=== PATIENT | female | born 1990 | race Caucasian/White ===

== ENCOUNTER 2020-07-25 00:45 | Inpatient (IN) | payer OTHER, SELFPAY ==
[2020-07-25] VITALS (92 sets, daily range): BP systolic 99–147; BP diastolic 53–105; PULSE 65–117; RESP 18; TEMP 36.2–37.1; O2SAT 98–100; BMI 25.0
--- NOTE | 2020-07-25 06:45 | LDADM ---
This patient, Karen Martin, was admitted to Labor/Delivery/Recovery 102 on 07/25/20 at 00:45. Plans for labor, pain management and were discussed with patient. Patient/family oriented to hospital policies and general routines including ID bracelet, bed and alarms, visiting hours, pain management, procedures, bathroom and other care routines, personal items, smoking policy, room service/diet and guest tray routines, security routines, and visiting hours. Patient/Family are encouraged to report perceived risks to care and to ask questions if they do not understand what they are told or what they should do. See OBIX for further documentation.
[2020-07-25] MEDS: LACTATED RINGERS 1,000 ML 125 ML IV CONT ×3 (07:39→11:14)
[2020-07-25] MEDS: OXYTOCIN 30 UNITS/NS 500 ML 30 UNITS/500 ML BAG 6 UNITS IV CONT (07:40)
--- NOTE | 2020-07-25 07:48 | P.PNAN_ITS ---
Anes - Eval Pre Procedure Procedure: labor epidural Date/Time: 07/25/20 07:48 Surgeon: allen Preop Diagnosis: pain during labor Pre Op Diagnosis: Induction of Labor Patient Data Age: 30 Gender: F Height: 1.68 m Weight: 70.4 kg Last Vital Signs Pulse 93 07/25/20 07:31 BP 123/86 07/25/20 07:31 Allergies Allergy/AdvReac Type Severity Reaction Status Date / Time No Known Allergies Allergy Verified 06/27/20 15:35 Home Medications Medication Instructions Recorded Confirmed Type PNV cmb#95-ferrous fumarate-FA 1 tablet PO DAILY 06/27/20 06/27/20 History [] Laboratory Tests 07/25/20 07/25/20 07:34 07:34 WBC Pending RBC Pending Hgb Pending Hct Pending MCV Pending MCH Pending MCHC Pending RDW Pending Plt Count Pending MPV Pending Immature Gran % (Auto) Pending Neut % (Auto) Pending Lymph % (Auto) Pending [place] % (Auto) Pending Eos % (Auto) Pending Baso % (Auto) Pending Lymph # (Auto) Pending [place] # (Auto) Pending Eos # (Auto) Pending Baso # (Auto) Pending Abs Immat Gran (auto) Pending Absolute Neuts (auto) Pending Absolute Nucleated RBC Pending Nucleated RBC % Pending RPR Pending Patient hx anesthesia problems: none Family hx anesthesia problems: none PMFSH Family History Family History (Updated 06/27/20 @ 15:38 by Ynes Christianson RN) Grandparent Diabetes mellitus Hx of CABG Heart disease, congenital Father High cholesterol Hypertension Social History Social History Smoking status: Never smoker Substance use: never Spiritual care concerns: No Exam Day of Procedure 07/25/20 07:48
--- NOTE | 2020-07-25 07:49 | P.HP_ITS ---
Obstetrics - Admit Note Admission Note: record reviewed. No pertinent additions to the history and/or any subsequent changes in the physical findings that are not consistent with the expected course of the were found.39.6 weeks gestation, EIL Additions to the history and/or subsequent changes in the physical findings fo llow. None.
[2020-07-25 07:50] LABS: Basophils Percent Auto 0.3 % (0.2-1.2); Eosinophils Absolute Auto 0.1 K/mm3 (0-0.3); Eosinophils Percent Auto 1.4 % (0-4.4); Hematocrit 35.4 % (37.0-47.0); Hemoglobin 12.1 g/dL (12.0-15.0); Immature Granulocyte Absolute 0.15 K/mm3 (0.00-0.031); Immature Granulocyte Percent A 1.5 % (0-0.5); Lymphocytes Absolute Auto 1.57 K/mm3 (0.9-3.2); Mean Corpuscular HGB Conc 34.2 g/dl (32-36); Mean Corpuscular Hemoglobin 31.7 pg (26-34); Mean Corpuscular Volume 92.7 fl (80-100); Mean Platelet Volume 12.1 fl (7.4-10.4); Monocytes Absolute Auto 0.7 K/mm3 (0.1-0.6); Monocytes Percent Auto 6.6 % (2.6-8.5); Neutrophils Absolute Auto 7.3 K/mm3 (1.3-6.7); Neutrophils Percent Auto 74.2 % (45.5-73.1); Platelet Count Result 135 k/mm3 (150-375); Red Blood Count 3.82 M/mm3 (4.2-5.4); Red Cell Distribution Width 14.6 % (11.5-14.5); White Blood Count 9.8 K/mm3 (4.5-10.0)
--- NOTE | 2020-07-25 14:09 | PM.OBPRVD ---
OB - Delivery Note Procedure Delivery date: 07/25/20 Procedure: vag delivery Intrapartal events: None Induction method: AROM and per pitocin protocol Delivery monitor: external FHT and external uterine Laceration description: None Specimen: No Estimated blood loss (mL): 225 Anesthesia type: Epidural Baby Date of : 07/25/20 Time of : 14:00 Weeks of gestation at delivery: 39 gender: Female presentation: vertex position: Left Occiput Anterior cord vessel description: 3 Vessels and Clamped/Cut score one minute: 9 score five minutes: 9
[2020-07-25] MEDS: OXYTOCIN 30 UNITS/NS 500 ML 30 UNITS/500 ML BAG 125 UNITS IV CONT (14:37)
[2020-07-25] MEDS: WITCH HAZEL 40 PADS 1 PAD TOPICAL (15:43)
[2020-07-25] MEDS: BENZOCAINE 20% AER SPR (*SP) 56 GM CAN 1 SPRAY TOPICAL (15:43)
--- NOTE | 2020-07-25 18:03 | PC.NURSE ---
Addendum entered by Ivana Olson RN 07/25/20 18:03: PT. admitted at 1715 to floor. Original Note: Patient transferred to post room #282 per wheelchair. Support person present. Oriented to unit, room, information board, rooming in, admission packet and security measures. Patient verbalizes understanding.
[2020-07-25] MEDS: IBUPROFEN 600 MG TABLET PO (18:54)
[2020-07-26] MEDS: IBUPROFEN 600 MG TABLET PO ×2 (05:00→16:33)
[2020-07-26 05:10] LABS: Hematocrit 30.3 % (37.0-47.0); Hemoglobin 10.5 g/dL (12.0-15.0)
--- NOTE | 2020-07-26 07:16 | PM.OBPNVD ---
OB - PN: Subj Subjective Date/time seen: 07/26/20 07:16 Patient comments: no complaints, pain well controlled and other (Lochia similar to menses) [place] baby status: doing well OB - PN: Obj Data Labs CBC & Chem 7: 07/26/20 04:58 Labs: Laboratory Results - last 24 hr 07/25/20 07/25/20 07/26/20 07:34 07:34 04:58 WBC 9.8 RBC 3.82 L Hgb 12.1 10.5 L Hct 35.4 L 30.3 L MCV 92.7 MCH 31.7 MCHC 34.2 RDW 14.6 H Plt Count 135 L MPV 12.1 H Immature Gran % (Auto) 1.5 H Neut % (Auto) 74.2 H Lymph % (Auto) 16.0 L [place] % (Auto) 6.6 Eos % (Auto) 1.4 Baso % (Auto) 0.3 Lymph # (Auto) 1.57 [place] # (Auto) 0.7 H Eos # (Auto) 0.1 Baso # (Auto) 0.0 Abs Immat Gran (auto) 0.15 H Absolute Neuts (auto) 7.3 H Absolute Nucleated RBC 0.0 Nucleated RBC % 0.0 Blood Type O Positive Antibody Screen Negative OB - PN A/P Plan day: 1 (s/p vaginal delivery, doing well) Plan: routine care and discharge home (Follow up in 4 weeks) Time Spent With Patient Time: Total time spent is greater than 50% in coordination of care (as documented) at patient's floor/unit and/or counseling patient: Time with patient: less than 15 minutes Exam Const: General: no acute distress GI: Inspection: other (Fundus firm and nontender at umbilicus) GI Palp: Yes Soft to palpation and No Tenderness to palpation present (GI) Extrem: General: no edema
[2020-07-26 07:56] LABS: Rapid Plasma Reagin Non-Reactive (NonReactive)
--- NOTE | 2020-07-26 08:00 | PC.NURSE ---
PT introductions made and plan of care discussed per post , pain management, breast feeding, daily care activities and pending discharge to home. PT verbalized understanding of such care.
[2020-07-26 08:25] VITALS: BP 117/82; PULSE 83; RESP 16; TEMP 36.9; O2SAT 100
[2020-07-26] MEDS: DOCUSATE SODIUM 100 MG CAPSULE PO ×2 (10:21→16:33)
[2020-07-26] MEDS: MULTIVIT/MIN/PREN/FOL AC/IRON TABLET 1 TAB PO (10:21)
[2020-07-26 10:23] VITALS: PULSE 83; RESP 16; O2SAT 100
[2020-07-26] MEDS: ACETAMINOPHEN 325 MG TABLET 650 MG PO ×2 (10:23→16:34)
--- NOTE | 2020-07-26 11:08 | WPDANLDPN2 ---
Anes-Prog Note L&D Date/Time: 07/26/20 11:08 Comfortable throughout: labor and delivery Neuraxial method: epidural Epidural/Spinal procedure site: clean & non-tender Neuro status: Neuro function grossly intact. Cardiovascular status: normal Respiratory status: normal Airway patency: baseline Mental status: baseline Post-Op hydration status: normal Vital Signs: Last Vital Signs Temp 36.9 C 07/26/20 08:25 Pulse 83 07/26/20 08:25 Resp 16 07/26/20 08:25 BP 117/82 07/26/20 08:25 Pulse Ox 100 07/26/20 08:25 Pain score (VAS): 11/12 I/O: Intake & Output 07/25/20 07/26/20 07/26/20 23:59 07:59 15:59 Intake Total 1500 Output Total 168 Balance 1332 Post-procedural complaints: none Patient feedback: Patient satisfied with anesthetic care.
--- NOTE | 2020-07-26 13:15 | PC.NURSE ---
Consulted with patient, mother reports infant is eagerly waking and latching for most feedings without difficulties or discomfort, mother struggles with some feedings. Assured mother this is normal while both are learning. Reviewed feeding cues, frequencies, duration of feedings, feeding elimination flow sheet, and signs of adequate intake. Demonstrated stimulation techniques to wake for feeding. Assisted with to breast. Reviewed positioning/alignment in cross cradle, holding breast in U hold and guided asymmetrical latch on. Discussed rational for each. Infant was able to latch correctly. Infant nursed eagerly, with steady draws and frequent swallowing noted. Reviewed signs of a correct latch, effective nursing and suck swallow ratio. Infant was able to maintain latch without discomfort to mother. Nipple care reviewed. Advised to stimulate to keep awake and nursing effectively for increased intake and to assist with maintaining deep latch. Demonstrated how to adjust latch more deeply while feeding. Instructed mother to call out for RN assistance if she is unable to latch for feeding or she has discomfort with nursing. Instructed feeding should be initiated three hours from start of last feeding or if feeding cues are noted before. Mother voiced understanding of information shared.
[2020-07-26] MEDS: TETANUS,DIPHTHERIA,AC PERTUSSIS ADULT (0.5 ML) BOOSTRIX IM (16:48)
[2020-07-26] MEDS: LANOLIN (LANSINOH) 7.5 GM CREAM 2 APPLIC (16:50)
[2020-07-26 20:00] VITALS: BP 105/70; PULSE 60; RESP 16; TEMP 36.6; O2SAT 100
[2020-07-27] MEDS: ACETAMINOPHEN 325 MG TABLET 650 MG PO ×2 (03:11→10:09)
[2020-07-27] MEDS: IBUPROFEN 600 MG TABLET PO ×2 (03:11→10:10)
--- NOTE | 2020-07-27 08:07 | P.PNOB_ITS ---
OB - PN: Subj Subjective Date/time seen: 07/27/20 08:07 Patient comments: no complaints and pain well controlled baby status: doing well and nursing well OB - PN: Obj Data Labs CBC & Chem 7: 07/26/20 04:58 OB - PN A/P Plan day: 2 Plan: routine care Comments: RTC in 4 weeks. Time Spent With Patient Time: Total time spent is greater than 50% in coordination of care (as documented) at patient's floor/unit and/or counseling patient: Review of Systems 2 Review of Systems: All systems reviewed & are unremarkable except as noted in HPI and below Exam Narrative: Exam Narrative: Fundus firm. Flow controlled. No edema. Const: General: comfortable and no acute distress Resp: Effort & Inspection: normal respiratory effort Psych: Appearance: grossly normal Affect: normal affect Attitude: coope rative Judgement: Good judgement present (Psych)
[2020-07-27 08:10] VITALS: BP 128/67; PULSE 106; RESP 18; TEMP 37.2; O2SAT 99
--- NOTE | 2020-07-27 08:58 | WPDANLDPN2 ---
Anes-Prog Note L&D Date/Time: 07/27/20 08:58 Comfortable throughout: labor and delivery Neuraxial method: epidural Epidural/Spinal procedure site: clean & non-tender Neuro status: Neuro function grossly intact. Cardiovascular status: normal Respiratory status: normal Airway patency: baseline Mental status: baseline Post-Op hydration status: normal Vital Signs: Last Vital Signs Temp 36.6 C 07/26/20 20:00 Pulse 60 07/26/20 20:00 Resp 16 07/26/20 20:00 BP 105/70 07/26/20 20:00 Pulse Ox 100 07/26/20 20:00 Pain score (VAS): 0 Post-procedural complaints: none Patient feedback: Patient satisfied with anesthetic care.
--- NOTE | 2020-07-27 09:00 | PC.NURSE ---
Patient viewed the discharge video Mother & Baby Care, The First Two Weeks . Patient was given the opportunity and encouraged to ask questions. Patient verbalized understanding of information shared and has been given the mother/baby guide for home reference.
--- NOTE | 2020-07-27 09:50 | PC.NURSE ---
Mother verbalizes she is able to independently latch with appropriate positioning/alignment. She denies any nipple discomfort, is feeding as required and waking to feed if needed. Infant has had at least 8 effective feedings in the past 24 hours, and is currently meeting outcomes for weight, output, jaundice and feeding frequencies. Mother states she feels confident to continue effective at home. Reviewed transition to breast milk, signs of adequate intake, and engorgement/relief. Instructed to call ICP if intake/output less than required. Reviewed regular medications mother is taking. Information provided per [place]. Reviewed community resources on the [facility] website and in the Mom/Baby guide. Information on outpatient services provided. Mother has no further questions at this time.
[2020-07-27] MEDS: MULTIVIT/MIN/PREN/FOL AC/IRON TABLET 1 TAB PO (10:08)
[2020-07-27 10:10] VITALS: PULSE 106; RESP 18; O2SAT 99
[2020-07-27] MEDS: DOCUSATE SODIUM 100 MG CAPSULE PO (10:10)
--- NOTE | 2020-07-27 10:45 | PC.NURSE ---
PT received discharge instructions per protocol and verbalized understanding of such care.
--- NOTE | 2020-07-27 11:20 | PC.NURSE ---
PT discharged to home ambulatory accompanied by both spouse and infant to waiting car. follow up appts confirmed
--- NOTE | 2020-07-28 07:41 | PM.OBDSVD ---
DS: Admitting Diagnosis Admitting Diagnosis Admitting Diagnosis: Induction of Labor, vag delivery, stable OB - DS: Summary OB Procedures : None OB Procedures Intrapartum: Spontaneous Vag Delivery OB Procedures: : None Time Spent with Patient Time attestation: Total time spent providing and/or coordinating discharge services: Discharge Plan Discharge Attending physician on discharge: Cyrus Antonio Discharging Clinician: Velia Pineda Patient Disposition: Home, Self-Care Activity: may shower and pelvic rest Diet: regular Discharge Instructions: Education: Mom and Baby Guide Given to: Mother Follow-Up: Call your delivering provider's office for an appointment to be seen in: 4 Weeks Mom and baby should come to the [facility] for the follow-up appointment. Appointment Date/Time: July 28, 2020 at 11:00 am What to expect at your follow-up visit: Blood Pressure Check Call [phone] if you are unable to keep your appointment time. BREAST CARE: * Wear a snug supportive bra. * For engorgement discomfort: Breast Feeding: * Apply warm moist washcloths * Express milk as needed to relieve engorgement * Wear loose clothing Bottle Feeding: * May apply ice packs * For sore nipples: * Identify correct latch-on * Apply warm moist washcloths before and after nursing * Air dry nipples after nursing * May apply Lansinoh cream to nipples PERINEAL CARE: * Until bleeding stops, use your tyson bottle after urinating * Change your pad frequently throughout the day * You may take sitz baths several times a day (fill your bathtub with warm water and soak for 20 minutes.) Do NOT bathe in the water * No tub baths until seen by your physician - You may shower ACTIVITY: * Rest as much as possible. * Do not exercise or lift anything heavier than your baby (such as laundry or other children.) * Avoid stairs or driving as much as possible. * Do not put anything into the vagina. No douching, tampons, or sexual activity until seen by physician. NOTIFY PHYSICIAN IF YOU HAVE ANY QUESTIONS OR IF ANY OF THE FOLLOWING SYMPTOMS OCCUR: * If your perineum becomes red, swollen, or more painful than what you have experienced in the hospital. * If your vaginal bleeding becomes foul smelling. * If your vaginal bleeding becomes more heavy than a period or if your bleeding changes from pink to bright red. However, you may pass an occasional walnut-sized clot once or twice for the first week . * If you experience a sharp, shooting pain in you calves. * If you discover a hard, reddened area on your breast or if you experience flu-like symptoms. * If you have a fever of 100.4 or greater DIET: * Eat regular, well-balanced meals. * Drink plenty of fluids daily. If , drink to thirst.Mother verbalizes she is able to independently latch infant with appropriate positioning/alignment. She denies any nipple discomfort, is feeding as required and waking to feed if needed. has had [# of feedings] effective feedings in the past 24 hours, and is currently meeting outcomes for weight, output, jaundice and feeding frequencies. Mother states she feels confident to continue effective at home. Reviewed transition to breast milk, signs of adequate intake, and engorgement/relief. Instructed to call ICP if intake/output less than required. Reviewed regular medications mother is taking. Information provided per [place]. Reviewed community resources on the [facility] website and in the Mom/Baby guide. Information on outpatient services provided. Mother has no further questions at this time. Patient Instructions: Antibiotic Form Stand Alone Forms: General Discharge Information Follow-up/Referrals: Liza Contreras CNM [Certified Nurse [employer]] -
[2020-07-28 10:34] VITALS: BP 121/75; PULSE 82; RESP 16; TEMP 36.8; O2SAT 99
== END 2020-07-27 11:20 | disposition home or self-care (01) | DRG 807 ==
LOC: ANHLDR 07:00 → ANHOB2 17:18
PROVIDERS: Advanced Practice Midwife; Admitting Provider Obstetrics & Gynecology; Visit Provider Obstetrics & Gynecology
DX: O36.8330 Maternal care for abnormalities of the fetal heart rate or rhythm, third trimester, not applicable or unspecified (principal); Z37.0 Single live birth; Z3A.39 39 weeks gestation of pregnancy; Z23 Encounter for immunization
CPT/HCPCS: 36415; 85014; 85018; 85025; 86592; 86850; 86900; 86901; 90471; 90686; 90715; A9270; G0008; J2590; J2795; J7120

== ENCOUNTER 2022-06-12 14:58 | Outpatient (CLI) | payer OTHER, SELFPAY ==
--- NOTE | ~2022-06-12 | US_ITS ---
EXAMINATION:US venous doppler LE LT INDICATION:Leg edema TECHNIQUE: Multiple grayscale, color flow and Doppler images of the ] and left lower extremity deep v enous systems were obtained and reviewed. COMPARISON:No prior studies for comparison. FINDINGS: The common femoral, superficial femoral and popliteal veins demonstrate normal respiratory variation, augmentation and compressibility. Color flow is also seen within the posterior tibial, pe roneal, greater saphenous and profunda veins. IMPRESSION: 1: No lower extremity deep venous thrombosis. Reviewed, dictated and finalized at location A.
== END 2022-06-12 14:59 | disposition home or self-care (01) ==
PROVIDERS: Visit Provider Advanced Practice Midwife
DX: R60.0 Localized edema (principal)
CPT/HCPCS: 93971

== ENCOUNTER 2022-09-06 05:13 | Inpatient (IN) | payer OTHER, SELFPAY ==
[2022-09-06] VITALS (120 sets, daily range): BP systolic 67–138; BP diastolic 26–107; PULSE 60–98; RESP 16; TEMP 36.3–37; O2SAT 95–100; BMI 23.5
--- OUTSIDE RECORDS SUMMARY | 2022-09-06 05:19 | XMS_ITS ---
:1990 Author Care Team Providers Name Role Phone Liza Contreras Primary Care Provider Unavailable Allergies Code Code System Name Reaction Severity Status Onset NKDA ? Notes: NO KNOWN ALLERGIES (Active) Com ment: Location: [facility]; Medications Name Status Start Date Stop Date ? ? fluconazole 150 mg tablet Completed ? 2021 iron Completed ? 08/25/2020 levothyroxine 25 mcg tablet Completed ? 03/2022 TAKE 1 TABLET BY MOUTH EVERY DAY levothyroxine 50 mcg tablet Active ? Not available TAKE 1 TABLET BY MOUTH EVERY DAY metoclopramide 10 mg tablet Active ? Not available NuvaRing 0.12 mg-0.015 mg/24 hr vaginal Completed ? 05/04/2020 Vitamin Active ? Not available Slynd 4 mg (28) tablet Completed ? 2 TAKE 1 TABLET BY MOUTH EVERY DAY Tylenol Completed ? 05/04/2020 Tylenol 325 mg tablet Completed ? 01/05/2021 take 2 tablet by oral route every 6 hours as needed valacyclovir 500 mg tablet Active ? Not a vailable TAKE 1 TABLET BY MOUTH TWICE DAILY RUBBER COMPOUNDER MIXER-PNV-DHA 28 mg iron-1 mg-200 mg capsule Completed ? 01/05/2021 Take 1 capsule every day by oral route. Zofran 4 mg tablet Completed 01/05/2020 01/13/2020 take 1 tablet by oral route every 4 hours as needed for nausea and vomiting Zyrtec Completed ? 01/05/2021 Zyrtec 10 mg tablet Active ? Not availabl e take 1 tablet by oral route every day Problems Name Status Onset Date Source ? SNOMED CT Concept Unknown 12/09/2016 History Edu
--- OUTSIDE RECORDS SUMMARY | 2022-09-06 05:19 | XMS_ITS | Encounter Summary ---
:1990 Author Reason for Visit OB visit OB [id number] EDC 09/12/2022 LMP 12/03/2021 Assessment and Plan Assessment Note Patient is _37__weeks . Discuss ed plan. 1. Routine care Discussion Note: None recorded.Patient educational handouts: No information available. Plan of Care Reminders Provider Appointments None recorded. ? ? Lab None recorded. ? ? Referral None recorded. ? ? Procedures None recorded. ? ? Surgeries None recorded. ? ? Imaging None recorded. ? ? Medications Name Start Date ? ? levothyroxine 50 mcg tablet ? TAKE 1 TABLET BY MOUTH EVERY DAY metoclopramide 10 mg tablet ? Take 1 tablet 4 times a day by oral route. Vitamin ? valacyclovir 500 mg tablet ? TAKE 1 TABLET BY MOUTH TWICE DAILY Zyrtec 10 mg tablet ? take 1 tablet by oral route every day Medications Administered None recorded. Vitals Height Weight BMI Blood Pressure 5 ft 5.5 in 145 lbs 23.8 kg/m2 119/78 mm[Hg] Results Lab Results None recorded. Allergies Code Code System Name Reaction Severity Onset NKDA ? ? ? Notes: NO KNOWN ALLERGIES (Active) Com ment: Location: [facility]; Problems Name Status Onset Date Source ? 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 Procedures Date Name Performed by ? 11/03/2007 Extraction of [place] Tooth Information n ot available 08/14/2022 US, O
--- OUTSIDE RECORDS SUMMARY | 2022-09-06 05:19 | XMS_ITS | Encounter Summary ---
:1990 Author Reason for Visit OB visit Assessment and Plan Assessment Note Patient is ___weeks . Discussed plan. 1. Routine care 2. Candidiasis of vagina ? Diflucan 150 mg tablet Discussion Note: None recorded.Patient educational handouts: No [...] BMI Blood Pressure 5 ft 5.5 in 141 lbs 23.1 kg/m2 111/73 mm[Hg] Results Lab Results None recorded. Allergies Code Code System Name Reaction Severity Onset NKDA ? ? ? Notes: NO KNOWN ALLERGIES (Active) Com ment: Location: [facility]; Problems Name Status Onset Date Source ? 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 Procedures Date Name Performed by ? 11/03/2007 Extraction of [place] Tooth Information n ot avail
--- OUTSIDE RECORDS SUMMARY | 2022-09-06 05:19 | XMS_ITS | Encounter Summary ---
:1990 Author Reason for Visit OB visit OB [id number] EDC 09/12/2022 LMP 12/03/2021 Assessment and Plan Assessment Note Patient is _31__weeks . Discuss ed plan. 1. Routine care [...] BMI Blood Pressure 5 ft 5.5 in 143 lbs 23.4 kg/m2 117/70 mm[Hg] Results Lab Results None recorded. Allergies Code Code System Name Reaction Severity Onset NKDA ? ? ? Notes: NO KNOWN ALLERGIES (Active) Com ment: Location: [facility]; Problems Name Status Onset Date Source ? 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 Procedures Date Name Performed by ? 11/03/2007 Extraction of [place] Tooth Information n ot available Vaccine List None recorded.
--- OUTSIDE RECORDS SUMMARY | 2022-09-06 05:19 | XMS_ITS | Encounter Summary ---
:1990 Author Reason for Visit None recorded. Assessment and Plan 1. Uterine size for dates discrepancy ? US, obstetric, follow-up Discussion Note: None recorded.Patient educational handouts: No information available. Plan of Care Reminders Provider Appointments None recorded. ? ? Lab None recorded. ? ? Referral None recorded. ? ? Procedures None recorded. ? ? Surgeries None recorded. ? ? Imaging US, Obstetric, Follow-up 08/14/2022 Brianna white Medications Name Start Date ? ? levothyroxine [...] every day Medications Administered None recorded. Vitals None recorded. Results Lab Results None recorded. Allergies Code Code System Name Reaction Severity Onset NKDA ? ? ? Notes: NO KNOWN ALLERGIES (Active) Com ment: Location: [facility]; Problems Name Status Onset Date Source ? 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 Procedures Date Name Performed by ? 11/03/2007 Extraction of [place] Tooth Information n ot available 08/14/2022 US, Obstetric, Follow-up [place] [address] [place] [address] ([address])
--- OUTSIDE RECORDS SUMMARY | 2022-09-06 05:19 | XMS_ITS | Encounter Summary ---
:1990 Author Reason for Visit OB visit OB [id number] EDC 09/12/2022 LMP 12/03/2021 Assessment and Plan Assessment Note Patient is 33.5___weeks . Discu ssed plan. 1. Routine care 2. Herpes simplex ? Valtrex 500 mg tablet Discussion Note: None recorded.Patient educational [...] BMI Blood Pressure 5 ft 5.5 in 144 lbs 23.6 kg/m2 107/64 mm[Hg] Results Lab Results None recorded. Allergies Code Code System Name Reaction Severity Onset NKDA ? ? ? Notes: NO KNOWN ALLERGIES (Active) Com ment: Location: [facility]; Problems Name Status Onset Date Source ? 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 Procedures Date Name Performed by ?
--- OUTSIDE RECORDS SUMMARY | 2022-09-06 05:19 | XMS_ITS | Encounter Summary ---
:1990 Author Reason for Visit OB visit OB [id number] EDC 09/12/2022 LMP 12/03/2021 Assessment and Plan Assessment Note Patient is _35__weeks . Discuss ed plan. 1. Routine care [...] ft 5.5 in 145 lbs 23.8 kg/m2 120/77 mm[Hg] Results Lab Results None recorded. Allergies Code Code System Name Reaction Severity Onset NKDA ? ? ? Notes: NO KNOWN ALLERGIES (Active) Com ment: Location: [facility]; Problems Name Status Onset Date Source ? 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 Procedures Date Name Performed by ? 11/03/2007 Extraction of [place] Tooth Information n ot available 08/14/2022 US, O
--- OUTSIDE RECORDS SUMMARY | 2022-09-06 05:19 | XMS_ITS | Encounter Summary ---
:1990 Author Reason for Visit OB visit OB [id number] EDC 09/12/2022 LMP 12/03/2021 Assessment and Plan Assessment Note Patient is _36__weeks . Discuss ed plan. 1. Routine care [...] BMI Blood Pressure 5 ft 5.5 in 146.6 lbs 24 kg/m2 132/83 mm[Hg] Results Lab Results None recorded. Allergies Code Code System Name Reaction Severity Onset NKDA ? ? ? Notes: NO KNOWN ALLERGIES (Active) Com ment: Location: [facility]; Problems Name Status Onset Date Source ? 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 Procedures Date Name Performed by ? 11/03/2007 Extraction of [place] Tooth Information n ot available 08/14/2022 US, O
--- OUTSIDE RECORDS SUMMARY | 2022-09-06 05:19 | XMS_ITS | Encounter Summary ---
:1990 Author Reason for Visit OB visit OB [id number] EDC 09/12/2022 LMP 12/03/2021 Assessment and Plan Assessment Note Patient is _38__weeks . Discuss ed plan. 1. Routine care [...] BMI Blood Pressure 5 ft 5.5 in 147 lbs 24.1 kg/m2 124/70 mm[Hg] Results Lab Results None recorded. Allergies Code Code System Name Reaction Severity Onset NKDA ? ? ? Notes: NO KNOWN ALLERGIES (Active) Com ment: Location: [facility]; Problems Name Status Onset Date Source ? 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 Procedures Date Name Performed by ? 11/03/2007 Extraction of [place] Tooth Information n ot available 08/14/2022 US, O
--- OUTSIDE RECORDS SUMMARY | 2022-09-06 05:19 | XMS_ITS | Encounter Summary ---
:1990 Author Reason for Visit OB visit OB [id number] EDC 09/12/2022 LMP 12/03/2021 Assessment and Plan 1. Routine care Discussion Note: None recorded.Patient [...] BMI Blood Pressure 5 ft 5.5 in 142 lbs 23.3 kg/m2 116/69 mm[Hg] Results Lab Results None recorded. Allergies Code Code System Name Reaction Severity Onset NKDA ? ? ? Notes: NO KNOWN ALLERGIES (Active) Com ment: Location: [facility]; Problems Name Status Onset Date Source ? 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 Procedures Date Name Performed by ? 11/03/2007 Extraction of [place] Tooth Information n ot available 05/21/2022 US, Obstetric, Limited [place] [address]
--- OUTSIDE RECORDS SUMMARY | 2022-09-06 05:19 | XMS_ITS | Encounter Summary ---
:1990 Author Reason for Visit OB visit OB [id number] EDC 09/12/2022 LMP 12/03/2021 Assessment and Plan Assessment Note Patient is _26__weeks . Discuss ed plan. 1. Routine care [...] BMI Blood Pressure 5 ft 5.5 in 138 lbs 22.6 kg/m2 106/68 mm[Hg] Results Lab Results None recorded. Allergies Code Code System Name Reaction Severity Onset NKDA ? ? ? Notes: NO KNOWN ALLERGIES (Active) Com ment: Location: [facility]; Problems Name Status Onset Date Source ? 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 Procedures Date Name Performed by ? 11/03/2007 Extraction of [place] Tooth Information n ot available 05/21/2022 US, Ob
[2022-09-06 05:56] LABS: Basophils Percent Auto 0.4 % (0.2-1.2); Eosinophils Absolute Auto 0.1 K/mm3 (0-0.3); Eosinophils Percent Auto 1.4 % (0-4.4); Hematocrit 34.6 % (37.0-47.0); Hemoglobin 11.6 g/dL (12.0-15.0); Immature Granulocyte Absolute 0.07 K/mm3 (0.00-0.031); Immature Granulocyte Percent A 0.8 % (0-0.5); Lymphocytes Absolute Auto 1.69 K/mm3 (0.9-3.2); Lymphocytes Percent Auto 20.2 % (18.3-44.2); Mean Corpuscular HGB Conc 33.5 g/dl (32-36); Mean Corpuscular Hemoglobin 30.4 pg (26-34); Mean Corpuscular Volume 90.6 fl (80-100); Mean Platelet Volume 11.8 fl (7.4-10.4); Monocytes Absolute Auto 0.6 K/mm3 (0.1-0.6); Monocytes Percent Auto 7.3 % (2.6-8.5); Neutrophils Absolute Auto 5.9 K/mm3 (1.3-6.7); Neutrophils Percent Auto 69.9 % (45.5-73.1); Platelet Count Result 149 k/mm3 (150-375); Red Blood Count 3.82 M/mm3 (4.2-5.4); Red Cell Distribution Width 13.9 % (11.5-14.5); White Blood Count 8.4 K/mm3 (4.5-10.0)
--- NOTE | 2022-09-06 05:58 | LDADM ---
This patient, Karen Martin, was admitted to Labor/Delivery/Recovery 104 on 09/06/22 at 05:13. Plans for labor, pain management and were discussed with patient. Patient/family oriented to hospital policies and general routines including ID bracelet, bed and alarms, visiting hours, pain management, procedures, bathroom and other care routines, personal items, smoking policy, room service/diet and guest tray routines, security routines, and visiting hours. Patient/Family are encouraged to report perceived risks to care and to ask questions if they do not understand what they are told or what they should do. See OBIX for further documentation.
[2022-09-06] MEDS: OXYTOCIN 30 UNITS/NS 500 ML 30 UNITS/500 ML BAG IV CONT (07:37)
--- NOTE | 2022-09-06 07:42 | WPDOBADMIT ---
Obstetrics - Admit Note Admission Note: record reviewed. No pertinent additions to the history and/or any subsequent changes in the physical findings that are not consistent with the expected course of the were found. IOL, sve 1.5/50/-1, plan pitocin and arom after epidural, anticipate vaginal delivery Additions to the history and/or subsequent changes in the physical findings follow. None.
[2022-09-06] MEDS: LACTATED RINGERS 1,000 ML 125 ML IV CONT ×2 (08:00→10:30)
--- NOTE | 2022-09-06 10:15 | WPDANESEPP ---
Anes - Eval Pre Procedure Procedure: Labor Epidural Date/Time: 09/06/22 10:15 Surgeon: Paco Preop Diagnosis: Labor Pain Pre Op Diagnosis: IOL Patient Data Age: 32 Gender: F Height: 1.68 m Weight: 66 kg Last Vital Signs Pulse 79 09/06/22 10:10 BP 120/63 09/06/22 10:10 Pulse Ox 100 09/06/22 10:11 O2 Del Method Room Air 09/06/22 06:13 Allergies Allergy/AdvReac Type Severity Reaction Status Date / Time No Known Allergies Allergy Verified 08/16/22 15:48 Home Medications Medication Instructions Recorded Confirmed Type vit no.95-ferrous 1 tablet PO DAILY 06/27/20 09/06/22 History fumarate 28 mg-folic acid 800 mcg tablet () levothyroxine 50 mcg tablet 50 mcg PO DAILY 08/16/22 09/06/22 History valacyclovir 500 mg tablet 500 mg PO Q12H 08/16/22 09/06/22 History (Valtrex) Laboratory Tests 09/06/22 09/06/22 09/06/22 05:49 05:49 05:49 WBC 8.4 K/mm3 K/mm3 (4.5-10.0) RBC 3.82 M/mm3 L M/mm3 (4.2-5.4) Hgb 11.6 g/dL L g/dL (12.0-15.0) Hct 34.6 % L % (37.0-47.0) MCV 90.6 fl fl (80-100) MCH 30.4 pg pg (26-34) MCHC 33.5 g/dl g/dl (32-36) RDW 13.9 % % (11.5-14.5) Plt Count 149 k/mm3 L k/mm3 (150-375) MPV 11.8 fl H fl (7.4-10.4) Immature Gran % (Auto) 0.8 % H % (0-0.5) Neut % (Auto) 69.9 % % (45.5-73.1) Lymph % (Auto) 20.2 % % (18.3-44.2) Bowie % (Auto) 7.3 % % (2.6-8.5) Eos % (Auto) 1.4 % % (0-4.4) Baso % (Auto) 0.4 % % (0.2-1.2) Lymph # (Auto) 1.69 K/mm3 K/mm3 (0.9-3.2) Bowie # (Auto) 0.6 K/mm3 K/mm3 (0.1-0.6) Eos # (Auto) 0.1 K/mm3 K/mm3 (0-0.3) Baso # (Auto) 0.0 K/mm3 K/mm3 (0.0-0.1) Abs Immat Gran (auto) 0.07 K/mm3 H K/mm3 (0.00-0.031) Absolute Neuts (auto) 5.9 K/mm3 K/mm3 (1.3-6.7) Absolute Nucleated RBC 0.0 K/mm3 K/mm3 (0.0-0.012) Nucleated RBC % 0.0 % % (0.0-0.2) RPR Pending Blood Type O Positive Antibody Screen Negative Patient hx anesthesia problems: none Family hx anesthesia problems: none Results Review: All pre-operative results and documents have been reviewed as part of the pre-operative evaluation. [facility] Family History Family History Grandparent Diabetes mellitus Hx of CABG Heart disease, congenital Father High cholesterol Hypertension Social History Social History Smoking status: Never smoker Substance use: never Spiritual care concerns: No Exam Day of Procedure 09/06/22 10:15 Patient weight: normal Heart: regular rate and rhythm Lungs: clear to auscultation Airway: Mallampati scale class II Neurological: alert and oriented
--- NOTE | 2022-09-06 15:38 | PM.OBPRVD ---
OB - Delivery Note Procedure Delivery date: 09/06/22 Procedure: Induction method: Per Pitocin Protocol Delivery augmentation: Rupture of Membranes Delivery monitor: External FHT and External Uterine Route of delivery: Specimen: No Quantitative Blood Loss (ml): 225 Anesthesia type: Epidural Disposition: Floor Narrative: mom and baby stable and doing skin to skin [place] Baby Date of : 09/06/22 Time of : 15:26 Weeks of gestation at delivery: 39 gender: Male Weight (pounds): 7 Weight (ounces): 15 presentation: vertex position: Right Occiput Anterior Placenta delivery description: Spontaneous Cord Vessel Description: 3 Vessels, Clamped/Cut and Delayed Cord Clamping score one minute: 9 score five minutes: 9
[2022-09-06] MEDS: OXYTOCIN 30 UNITS/NS 500 ML 30 UNITS/500 ML BAG 125 UNITS IV CONT (17:56)
[2022-09-06] MEDS: WITCH HAZEL 40 PADS 1 PAD TOPICAL (18:54)
[2022-09-06] MEDS: BENZOCAINE 20% AER SPR (*SP) 56 GM CAN 1 SPRAY TOPICAL (18:54)
--- NOTE | 2022-09-06 19:19 | OBPPTRN ---
Patient transferred to post room #291 via w/c. Support person, Suman, present. Oriented to unit, room, information board, rooming in, admission packet and security measures. Patient verbalizes understanding.
[2022-09-06] MEDS: IBUPROFEN 600 MG TABLET PO (21:40)
[2022-09-06] MEDS: ACETAMINOPHEN 325 MG TABLET 650 MG PO (23:50)
[2022-09-07] VITALS: BP 116/77; PULSE 80; RESP 16; TEMP 36.7; O2SAT 99
[2022-09-07 04:40] VITALS: BP 113/58; PULSE 68; RESP 16; TEMP 36.3; O2SAT 100
[2022-09-07] MEDS: IBUPROFEN 600 MG TABLET PO (04:40)
[2022-09-07 05:06] LABS: Hematocrit 31.5 % (37.0-47.0); Hemoglobin 10.5 g/dL (12.0-15.0)
[2022-09-07 07:38] VITALS: BP 114/77; PULSE 67; RESP 16; TEMP 36.7; O2SAT 100
[2022-09-07] MEDS: DOCUSATE SODIUM 100 MG CAPSULE PO (07:38)
[2022-09-07] MEDS: TETANUS,DIPHTHERIA,AC PERTUSSIS ADULT (0.5 ML) BOOSTRIX IM (07:38)
[2022-09-07 13:20] VITALS: BP 130/75; PULSE 72; RESP 18; TEMP 36.6; O2SAT 100
--- NOTE | 2022-09-07 13:21 | PM.OBPNVD ---
OB - PN: Subj Subjective Date/time seen: 09/07/22 13:21 Patient comments: no complaints, pain well controlled, incisional pain, tolerating diet and flatus present OB - PN: Obj Data Labs CBC & Chem 7: 09/07/22 04:37 Labs: Laboratory Results - last 24 hr 09/07/22 04:37 Hgb 10.5 L Hct 31.5 L OB - PN A/P Plan day: 1 Plan: routine care Comments: No problems, routine care Time Spent With Patient Time: Total time spent is greater than 50% in coordination of care (as documented) at patient's floor/unit and/or counseling patient: Exam Const: General: comfortable, no acute distress and alert Resp: Effort & Inspection: normal respiratory effort Auscultation: no crackles, no rales and no rhonchi Cardio: Rate: regular rate Heart sounds: no click, no murmurs and no rubs GI: Inspection: non-distended GI Palp: No Tenderness to palpation present (GI) Auscultation: normal bowel sounds Other: Incision - CDI Extrem: General: normal to inspection, no pedal edema and no calf tenderness
--- NOTE | 2022-09-07 13:21 | PM.OBDSVD ---
DS: Admitting Diagnosis Discharge Date 09/07/22 Admitting Diagnosis term OB - DS: Summary OB Procedures : None OB Procedures Intrapartum: Spontaneous Vag Delivery OB Procedures: : None Time Spent with Patient Time attestation: Total time spent providing and/or coordinating discharge services: DS: Data Data Completed and Pending Labs on day of discharge: Labs from last 24 hours 09/07/22 04:37 Hgb 10.5 L Hct 31.5 L Discharge Plan Discharge Consulting providers: Liza Contreras Discharging Clinician: Cyrus Antonio Patient Disposition: Home, Self-Care Activity: pelvic rest Diet: regular Patient Instructions: Antibiotic Form Stand Alone Forms: General Discharge Information Follow-up/Referrals: Cyrus Antonio MD [Physician] - Discharge Medications: Continued PNV cmb#95-ferrous fumarate-FA [] 28 mg iron- 800 mcg Tablet 1 tablet PO DAILY valacyclovir [Valtrex] 500 mg Tablet 500 mg PO Q12H levothyroxine 50 mcg Tablet 50 mcg PO DAILY Date of admission: 09/06/22 05:13 Primary Care Provider: Liza Contreras Admitting Provider: Cyrus Antonio Attending physician on admission: Cyrus Antonio Condition: Stable
--- NOTE | 2022-09-07 17:20 | PC.NURSE ---
1200 Patient viewed the discharge video Mother & Baby Care, The First Two Weeks . Patient was given the opportunity and encouraged to ask questions. Patient verbalized understanding of information shared and has been given the mother/baby guide for home reference.
[2022-09-09 12:13] LABS: Rapid Plasma Reagin Non-Reactive (NonReactive)
[2022-09-09 13:16] VITALS: BP 107/72; PULSE 73; RESP 16; TEMP 36.8; O2SAT 100
== END 2022-09-07 17:25 | disposition home or self-care (01) | DRG 807 ==
LOC: ANHLDR 10:16 → ANHOB2 19:25
PROVIDERS: Admitting Provider Obstetrics & Gynecology; PCP Advanced Practice Midwife; Visit Provider Obstetrics & Gynecology
DX: O98.32 Other infections with a predominantly sexual mode of transmission complicating childbirth (principal); Z37.0 Single live birth; Z3A.39 39 weeks gestation of pregnancy; A60.09 Herpesviral infection of other urogenital tract; Z23 Encounter for immunization
CPT/HCPCS: 36415; 85014; 85018; 85025; 86592; 86850; 86900; 86901; 90471; 90686; 90715; A9270; G0008; J2590; J2795; J7120